=== PATIENT | male | born 1980 | race Caucasian/White ===

== ENCOUNTER 2024-10-05 10:14 | Emergency (ER) | payer BC ==
[~2024-10-05] VITALS: Ht 172.7 cm; Wt 84.4 kg
[2024-10-05] MEDS ORDERED: PREDNISONE20 M1 PO (10:41)
[2024-10-05] MEDS ORDERED: Water, Sterile 10 ML VIAL ONE (11:17)
== END 2024-10-05 11:05 | disposition home or self-care (01) ==
LOC: ED 10:14
DX: L23.7 Allergic contact dermatitis due to plants, except food (principal)